=== PATIENT | female | born 1965 | race Two or more races ===

== ENCOUNTER 2017-08-07 15:03 | Emergency (ER) | payer MEDICARE ==
[2017-08-07] MEDS: HYDROcodone/APAP 5/325MG 1 TAB TABLET PO (15:54)
[2017-08-07] MEDS: KETOROLAC 60 MG/2 ML INJ. IM (15:56)
== END 2017-08-07 16:29 | disposition home or self-care (01) ==
LOC: ER 15:03
DX: M06.9 Rheumatoid arthritis, unspecified (principal); I10 Essential (primary) hypertension; M32.9 Systemic lupus erythematosus, unspecified; Z90.49 Acquired absence of other specified parts of digestive tract; Z98.890 Other specified postprocedural states; Z88.5 Allergy status to narcotic agent; Z88.8 Allergy status to other drugs, medicaments and biological substances
CPT/HCPCS: 96372; 99283-25; J1885

== ENCOUNTER → 2018-08-22 | Outpatient (CLI) | payer MEDICARE ==
[2017-08-07 15:15] VITALS: BP 130/73
[~2018-08-22] MED LIST: ASPI-621 PO; CYCL10TA2 PO; HYDR-3164 PO; IBUP-1060 PO
--- NOTE | 2018-08-22 14:57 | KCIC ---
Bilateral digital screening mammograms with 3-D tomosynthesis: Reason for examination: Routine screening. Comparison is made to previous studies dated 11/06/2012 and 08/02/2009. Bilateral mammograms in CC and oblique projections were obtained with 2-D imaging and 3-D tomosynthesis imaging on a Siemens Inspiration unit and reviewed on the workstation. Interpretation was made with the benefit of CAD. The skin and nipples show no abnormalities. No abnormal axillary lymph nodes are seen. The breast parenchyma is extremely dense. (Breast density: Category D.) There are 2 circumscribed nodules present in the lower inner quadrant of the right breast with a 7 mm nodule at the 4:00 B position and a 3.2 cm nodule at the 5:00 B position. These likely represent cysts. There also appears to be a circumscribed lesion measuring 1.8 cm in size located at approximately the 2:00 B position 5.3 cm from the nipple. There are no other new dominant masses, suspicious calcifications or architectural distortion. Impression: 3.2 cm circumscribed lesion at the 5:00 B position of the right breast. 7 mm circumscribed nodule 4:00 B position of the right breast and at 1.8 cm nodule in the left breast at the 2:00 B position. Recommend further evaluation with bilateral breast ultrasound. Your patient's mammogram demonstrates that she has dense breast tissue (breast density category C or D), which could hide abnormalities, and if she has other risk factors for breast cancer that have been identified, she might benefit from supplemental screening tests that may be suggested by you as her ordering physician. Dense breast tissue, in and of itself, is a relatively common condition. Therefore, this information is not provided to cause undue concern, but rather to raise your awareness and to promote discussion with your patient regarding the presence of other risk factors, in addition to dense breast tissue. Your patient's mammography results will be sent to her. BI-RAD Category 0: Incomplete. Needs additional imaging evaluation. "Our facility is accredited by the [employer] Mammography Program." This patient's information has been entered into a reminder system for the patient to be notified with the results of her examination and a target date for the next mammogram. Electronically signed by: Sharon Valencia MD (08/22/2018 2:54 PM) [facility]
== END | disposition home or self-care (01) ==
LOC: KCIC MAMMO 10:39
PROVIDERS: ATTEND Nurse Practitioner Family
DX: Z12.31 Encounter for screening mammogram for malignant neoplasm of breast (principal); N63.14 Unspecified lump in the right breast, lower inner quadrant; N63.21 Unspecified lump in the left breast, upper outer quadrant
CPT/HCPCS: 77063; 77067

== ENCOUNTER → 2018-09-10 | Outpatient (CLI) | payer MEDICARE ==
[2017-08-07 15:15] VITALS: BP 130/73
--- NOTE | 2018-09-10 09:47 | KCIC ---
Bilateral breast ultrasound: Reason for examination: Nodular densities on screening mammogram. Comparison is made to mammographic exam dated 08/22/2018. Ultrasound examination was performed bilaterally with attention to the areas of mammographic concern and the axilla. In the right breast at the 3:30 position 6 cm from the nipple, there is a bilobed fibrocystic lesion which appears well-circumscribed. The largest of the 2 lesions appears to measure 6.2 mm in greatest dimension and together the nodules measure 9.4 mm in greatest dimension. In the 5:00 position 3 cm from the nipple, there is also a circumscribed complex cystic lesion measuring 3.2 x 2.8 cm in greatest dimensions and contains some inspissated debris. No suspicious lesions are seen. No abnormal appearing lymph nodes are seen in the right axilla. In the left breast at the 2:00 position 5 cm from the nipple, there are 3 clustered fibrocystic lesions which are subcentimeter in size with largest measuring 3.6 mm in greatest dimension. At the 3:00 position 7 cm from the nipple, there is an additional 5 mm fibrocystic lesion. No other cystic or solid lesions are seen. No abnormal appearing lymph nodes are seen in the left axilla. IMPRESSION: 3.2 cm complicated cyst at the 5:00 position of the right breast. Additional small benign-appearing fibrocystic lesions at the 3:30 position of the right breast and at the 2:00 and 3:00 positions of the left breast. No suspicious lesions are seen. Recommend 6 month follow-up with ultrasound. BI-RADS Category 3: Probably Benign. "Our facility is accredited by the [employer] Mammography Program." This patient's information has been entered into a reminder system for the patient to be notified with the results of her examination and a target date for the next mammogram. Electronically signed by: Sharon Valencia MD (09/10/2018 9:44 AM) [facility]
== END | disposition home or self-care (01) ==
LOC: KCIC US 07:33
PROVIDERS: ATTEND Nurse Practitioner Family
DX: N60.01 Solitary cyst of right breast (principal); N64.89 Other specified disorders of breast
CPT/HCPCS: 76641

== ENCOUNTER 2018-10-06 06:58 | Emergency (ER) | payer MEDICARE ==
[~2018-10-06] VITALS: Ht 154.9 cm; Wt 97.5 kg
[~2018-10-06 06:58] MED LIST changes: -CYCL10TA2 PO
[2018-10-06] MEDS ORDERED: IV NORMAL SALINE 1000ML BAG 1,000 ML IV SCH (07:24)
[2018-10-06 07:26] LABS: BILIRUBIN,URINE NEGATIVE (NEG); CLARITY,URINE CLEAR; COLOR,URINE YELLOW; NITRITE,URINE NEGATIVE (NEG); PH,URINE 5.5; PROTEIN,URINE NEGATIVE (NEG-TRACE)
[2018-10-06 07:37] LABS: BACTERIA,URINE FEW /HPF (0-FEW); SQUAMOUS EPITHELIAL CELL,UR MOD /LPF; WBC,URINE 0 /HPF (0-4)
[2018-10-06 07:41] LABS: BASO % 0 % (0-3); EOS # 0.1 x10^3/uL (0.0-0.7); EOS % 2 % (0-3); HEMATOCRIT 39.2 % (36.0-47.0); HEMOGLOBIN 13.5 g/dL (12.0-15.5); LYMPH # 1.2 x10^3/uL (1.0-4.8); LYMPH % 22 % (24-48); MEAN CORPUSCULAR HEMOGLOBIN 30 pg (25-35); MEAN CORPUSCULAR HGB CONC 34 g/dL (31-37); MEAN CORPUSCULAR VOLUME 89 fL (79-100); MONO # 0.5 x10^3/uL (0.0-1.1); MONO % 8 % (0-9); NEUT # 3.9 x10^3uL (1.8-7.7); NEUT % 69 % (31-73); PLATELET COUNT 203 x10^3/uL (140-400); RED BLOOD COUNT 4.42 x10^6/uL (3.50-5.40); RED CELL DISTRIBUTION WIDTH 15.8 % (11.5-14.5); WHITE BLOOD COUNT 5.7 x10^3/uL (4.0-11.0)
[2018-10-06 07:47] LABS: CREATININE 0.9 mg/dL (0.6-1.0); GFR 65.2; POTASSIUM 3.9 mmol/L (3.5-5.1)
[2018-10-06 07:52] LABS: ALBUMIN 3.8 g/dL (3.4-5.0); ALBUMIN/GLOBULIN RATIO 0.8 (1.0-1.7); TOTAL BILIRUBIN 0.4 mg/dL (0.2-1.0); TOTAL PROTEIN 8.4 g/dL (6.4-8.2)
--- NOTE | 2018-10-06 07:56 | RAD ---
Examination: CT of the abdomen pelvis without contrast HISTORY: History of left flank pain COMPARISON: None available TECHNIQUE: Axial CT images of the abdomen is available for the contrast. Coronal and sagittal reformats performed Exposure: One or more of the following individualized dose reduction techniques were utilized for this examination: 1. Automated exposure control 2. Adjustment of the mA and/or kV according to patient size 3. Use of iterative reconstruction technique FINDINGS: Mild bibasilar lung airspace opacities likely atelectasis or infiltrates. No evidence of free air identified in the abdomen. The evaluation of the solid organs is limited due to lack of IV contrast. The evaluation of bowel is limited due to lack of oral contrast. There is diffuse decreased attenuation noted in the liver likely hepatic steatosis. The visualized spleen, adrenals grossly appears unremarkable. Cholecystectomy clips identified. The stomach is mildly distended. The visualized pancreas grossly appears unremarkable. The small bowel is nondilated. The appendix is normal. Feces and gas noted in the colon. There is mild thickened appearance of the wall of the distal descending colon and the sigmoid colon with minimal surrounding fat stranding. Numerous sigmoid colon diverticulosis identified. The urinary bladder is mildly distended. No evidence of intrarenal collecting system calculi or hydronephrosis. The caliber of the aorta grossly appears unremarkable. No evidence of lytic bony destructive lesion. IMPRESSION: 1. Mild thickening of the wall of the distal descending colon and sigmoid colon with minimal surrounding fat stranding likely minimal colitis. 2. Multiple sigmoid colon diverticulosis. 3. No evidence of intrarenal collecting system calculi or hydronephrosis. 4. Hepatic steatosis. Electronically signed by: Hal Nathan MD (10/06/2018 7:53 AM) [facility]
[2018-10-06] MEDS ORDERED: fentaNYL PF VIAL 100 MCG/2 ML VIAL IV ONE (08:00)
[2018-10-06] MEDS ORDERED: ONDANSETRON PF 4 MG/2 ML VIAL. IV ONE (08:00)
[2018-10-06] MEDS ORDERED: IV NORMAL SALINE 1000ML BAG 1,000 ML IV ONE (08:30)
[2018-10-06] MEDS ORDERED: KETOROLAC 30 MG/ML VIAL. IV ONE (08:30)
[2018-10-06] MEDS ORDERED: CYCLOBENZAPRINE 10 MG TABLET. PO ONE (08:45)
[2018-10-06 09:45] VITALS: BP 116/71
[2018-10-06] MEDS ORDERED: HYDR-3164 PO (09:54)
[2018-10-06] MEDS ORDERED: CYCL10TA2 PO (09:54)
--- NOTE | 2018-10-06 09:54 | PHYS DOC ---
Past Medical History Past Medical History: Hypertension, Other Additional Past Medical Histor: RA, lupus Past Surgical History: Cholecystectomy, Other Additional Past Surgical Histo: hernia Alcohol Use: None Drug Use: None Adult General Chief Complaint Chief Complaint: FLANK PAIN HPI HPI Patient is a 53 year old female who presents with complaining of flank and back pain. Patient complaining of constant left flank and back pain for the last 3 days after she was sitting on a bench during a graduation. She states the pain is a constant sharp pain and radiated to left side of abdomen and denies nausea and vomiting, fever and chills, focal neuro deficit, urinary symptoms, history of back pain. Patient states the pain getting worse with movement and activity and did not get better with [id number] pain medication. Review of Systems Review of Systems Constitutional: Denies fever or chills [] Eyes: Denies change in visual acuity, redness, or eye pain [] HENT: Denies nasal congestion or sore throat [] Respiratory: Denies cough or shortness of breath [] Cardiovascular: No additional information not addressed in HPI [] GI: Denies abdominal pain, nausea, vomiting, bloody stools or diarrhea [] : Denies dysuria or hematuria [] Musculoskeletal: Reports back pain, denies joint pain [] Integument: Denies rash or skin lesions [] Neurologic: Denies headache, focal weakness or sensory changes [] Endocrine: Denies polyuria or polydipsia [] All other systems were reviewed and found to be within normal limits, except as documented in this note. Current Medications Current Medications Current Medications Medications (Trade) Dose Ordered Sig/[facility] Start Time Stop Time Status Last Admin Dose Admin Cyclobenzaprine HCl (Flexeril) 10 mg 1X ONCE 10/06/18 08:45 10/06/18 08:46 DC 10/06/18 09:04 10 MG Fentanyl Citrate (Fentanyl 2ml Vial) 50 mcg 1X ONCE 10/06/18 08:00 10/06/18 08:01 DC 10/06/18 07:38 50 MCG Ketorolac Tromethamine (Toradol 30mg Vial) 30 mg 1X ONCE 10/06/18 08:30 10/06/18 08:31 DC 10/06/18 08:29 30 MG Ondansetron HCl (Zofran) 4 mg 1X ONCE 10/06/18 08:00 10/06/18 08:01 DC 10/06/18 07:38 4 MG Sodium Chloride 1,000 ml @ 1,000 mls/hr 1X ONCE 10/06/18 08:30 10/06/18 09:29 DC 10/06/18 08:29 1,000 MLS/HR Allergies Allergies Allergies Coded Allergies Type Severity Reaction Last Updated Verified prednisone Allergy Intermediate rash 08/26/15 Yes diphenhydramine Allergy Unknown "toungue swells and itching" 03/23/16 Yes Physical Exam Physical Exam Constitutional: Well developed, well nourished, mild distress, non-toxic appearance. [] HENT: Normocephalic, atraumatic, oropharynx moist. Eyes: PERRLA, EOMI, conjunctiva normal, no discharge. [] Neck: Normal range of motion, no tenderness, supple, no stridor. [] Cardiovascular:Heart rate regular rhythm, no murmur [] Lungs & Thorax: Bilateral breath sounds clear to auscultation [] Abdomen: Bowel sounds normal, soft, left lower quadrant guarding, no tenderness, no masses, no pulsatile masses. [] Skin: Warm, dry, no erythema, no rash. [] Back: No midline tenderness, left paraspinal muscular spasm ,no CVA tenderness. [] Extremities: No tenderness, no cyanosis, no clubbing, ROM intact, no edema, bilateral hand joint deformity of rheumatoid arthritis. [] Neurologic: Alert and oriented X 3, normal motor function, normal sensory function, no focal deficits noted. [] Psychologic: Affect normal, judgement normal, mood normal. [] Current Patient Data Vital Signs Vital Signs Date Time Temp Pulse Resp B/P (MAP) Pulse Ox O2 Delivery O2 Flow Rate FiO2 10/06/18 09:45 78 16 116/71 (86) 97 Room Air 10/06/18 07:02 98.3 98.3 Lab Values Laboratory Tests Test 10/06/18 07:00 10/06/18 07:25 Urine Collection Type Unknown Urine Color Yellow Urine Clarity Clear Urine pH 5.5 Urine Specific Osteen 1.020 Urine Protein Negative mg/dL (NEG-TRACE) Urine Glucose (UA) Negative mg/dL (NEG) Urine Ketones (Stick) Negative mg/dL (NEG) Urine Blood Negative (NEG) Urine Nitrite Negative (NEG) Urine Bilirubin Negative (NEG) Urine Urobilinogen Dipstick 1.0 mg/dL (0.2 mg/dL) Urine Leukocyte Esterase Negative (NEG) Urine RBC 1-2 /HPF (0-2) Urine WBC 0 /HPF (0-4) Urine Squamous Epithelial Cells Mod /LPF Urine Bacteria Few /HPF (0-FEW) Urine Mucus Marked /LPF White Blood Count 5.7 x10^3/uL (4.0-11.0) Red Blood Count 4.42 x10^6/uL (3.50-5.40) Hemoglobin 13.5 g/dL (12.0-15.5) Hematocrit 39.2 % (36.0-47.0) Mean Corpuscular Volume 89 fL (79-100) Mean Corpuscular Hemoglobin 30 pg (25-35) Mean Corpuscular Hemoglobin Concent 34 g/dL (31-37) Red Cell Distribution Width 15.8 % (11.5-14.5) H Platelet Count 203 x10^3/uL (140-400) Neutrophils (%) (Auto) 69 % (31-73) Lymphocytes (%) (Auto) 22 % (24-48) L Monocytes (%) (Auto) 8 % (0-9) Eosinophils (%) (Auto) 2 % (0-3) Basophils (%) (Auto) 0 % (0-3) Neutrophils # (Auto) 3.9 x10^3uL (1.8-7.7) Lymphocytes # (Auto) 1.2 x10^3/uL (1.0-4.8) Monocytes # (Auto) 0.5 x10^3/uL (0.0-1.1) Eosinophils # (Auto) 0.1 x10^3/uL (0.0-0.7) Basophils # (Auto) 0.0 x10^3/uL (0.0-0.2) Sodium Level 139 mmol/L (136-145) Potassium Level 3.9 mmol/L (3.5-5.1) Chloride Level 101 mmol/L (98-107) Carbon Dioxide Level 27 mmol/L (21-32) Anion Gap 11 (6-14) Blood Urea Nitrogen 23 mg/dL (7-20) H Creatinine 0.9 mg/dL (0.6-1.0) Estimated GFR (Cockcroft-Gault) 65.2 BUN/Creatinine Ratio 26 (6-20) H Glucose Level 114 mg/dL (70-99) H Calcium Level 9.0 mg/dL (8.5-10.1) Total Bilirubin 0.4 mg/dL (0.2-1.0) Aspartate Amino Transferase (AST) 30 U/L (15-37) Alanine Aminotransferase (ALT) 51 U/L (14-59) Alkaline Phosphatase 80 U/L (46-116) Total Protein 8.4 g/dL (6.4-8.2) H Albumin 3.8 g/dL (3.4-5.0) Albumin/Globulin Ratio 0.8 (1.0-1.7) L Lipase 130 U/L (73-393) Laboratory Tests 10/06/18 07:25 Laboratory Tests 10/06/18 07:25 EKG EKG [] Radiology/Procedures Radiology/Procedures [][facility] [address] [place] [address] IMAGING REPORT Signed PATIENT: DEJUAN ANDERSON ACCOUNT: [id number] : 1965 LOCATION: ER AGE: 53 SEX: F EXAM STATUS: REG ER ORD. PHYSICIAN: ORTIZ REDDING MD REASON: left flank pain PROCEDURE: CT ABDOMEN PELVIS WO CONTRAST Examination: CT of the abdomen pelvis without contrast HISTORY: History of left flank pain COMPARISON: None available TECHNIQUE: Axial CT images of the abdomen is available for the contrast. Coronal and sagittal reformats performed Exposure: One or more of the following individualized dose reduction techniques were utilized for this examination: 1. Automated exposure control 2. Adjustment of the mA and/or kV according to patient size 3. Use of iterative reconstruction technique FINDINGS: Mild bibasilar lung airspace opacities likely atelectasis or infiltrates. No evidence of free air identified in the abdomen. The evaluation of the solid organs is limited due to lack of IV contrast. The evaluation of bowel is limited due to lack of oral contrast. There is diffuse decreased attenuation noted in the liver likely hepatic steatosis. The visualized spleen, adrenals grossly appears unremarkable. Cholecystectomy clips identified. The stomach is mildly distended. The visualized pancreas grossly appears unremarkable. The small bowel is nondilated. The appendix is normal. Feces and gas noted in the colon. There is mild thickened appearance of the wall of the distal descending colon and the sigmoid colon with minimal surrounding fat stranding. Numerous sigmoid colon diverticulosis identified. The urinary bladder is mildly distended. No evidence of intrarenal collecting system calculi or hydronephrosis. The caliber of the aorta grossly appears unremarkable. No evidence of lytic bony destructive lesion. IMPRESSION: 1. Mild thickening of the wall of the distal descending colon and sigmoid colon with minimal surrounding fat stranding likely minimal colitis. 2. Multiple sigmoid colon diverticulosis. 3. No evidence of intrarenal collecting system calculi or hydronephrosis. 4. Hepatic steatosis. Electronically signed by: Hal Nathan MD (10/06/2018 7:53 AM) [facility] DICTATED and SIGNED BY: HAL NATHAN MD DATE: 10/06/18 0753 Course & Med Decision Making Course & Med Decision Making Pertinent Labs and Imaging studies reviewed. (See chart for details) Evaluation of patient in ER showed 53-year-old female patient with complaining of left flank and left lower quadrant pain for 3 days as a constant pain that getting worse with movement. Patient had unremarkable labs. CT of abdomen and pelvis showed left colitis without other acute finding. Patient has appointment for colonoscopy in 3 days. Patient felt better with treatment in ER. Plan to discharge patient home with diagnose of lumbosacral strain. Dragon Disclaimer Dragon Disclaimer This electronic medical record was generated, in whole or in part, using a voice recognition dictation system. Departure Departure Impression: Primary Impression: Acute lumbosacral myofascial strain Additional Impressions: Diverticulosis Colitis History of rheumatoid arthritis Dehydration Disposition: HOME, SELF-CARE (at 0 952) Condition: IMPROVED Referrals: EDWARD GALLARDO APRN (PCP) Patient Instructions: Colitis, Dehydration, Adult, Diverticulosis, Lumbosacral Strain Additional Instructions: Drink plenty of liquids Follow-up with your primary care physician in 3-5 days Return to ER if not getting better Apply ice on the affected area Scripts Hydrocodone/Apap 5-325 (NORCO 5-325 TABLET) 1 Each Tablet 1 TAB PO PRN Q6HRS PRN for PAIN, #14 TAB 0 Refills Prov: ORTIZ REDDING MD 10/06/18 Cyclobenzaprine Hcl (CYCLOBENZAPRINE HCL) 10 Mg Tablet 1 TAB PO TID for muscle pain, #30 TAB Prov: ORTIZ REDDING MD 10/06/18 Problem Qualifiers Primary Impression: Acute lumbosacral myofascial strain Encounter type: initial encounter Qualified Codes: S39.012A - Strain of muscle, fascia and tendon of lower back, initial encounter ORTIZ REDDING MD October 06, 2018 09:54
== END 2018-10-06 10:05 | disposition home or self-care (01) ==
LOC: ER 06:58
DX: S39.012A Strain of muscle, fascia and tendon of lower back, initial encounter (principal); K52.9 Noninfective gastroenteritis and colitis, unspecified; K57.90 Diverticulosis of intestine, part unspecified, without perforation or abscess without bleeding; E86.0 Dehydration; M06.9 Rheumatoid arthritis, unspecified; I10 Essential (primary) hypertension; Z90.49 Acquired absence of other specified parts of digestive tract; Z98.890 Other specified postprocedural states; Z88.5 Allergy status to narcotic agent; X58.XXXA Exposure to other specified factors, initial encounter; Y93.89 Activity, other specified; Y92.89 Other specified places as the place of occurrence of the external cause; Y99.8 Other external cause status
CPT/HCPCS: 36415; 74176; 80053; 81001; 83690; 85025; 96361; 96374; 96375; 99285; J1885; J2405; J3010; J7030

== ENCOUNTER → 2018-10-25 | Outpatient (CLI) | payer MEDICARE ==
[2018-10-06 09:45] VITALS: BP 116/71
[~2018-10-25] MED LIST changes: +CYCL10TA2 PO; +IOHEXOL 350 MG/ML 100 ML VIAL. IV ONE
--- NOTE | 2018-10-25 12:14 | RAD ---
Examination: CT ANGIOGRAPHY ABD AND PELVIS History: Left-sided abdominal pain. Ischemic colitis. Comparison/Correlation: 10/06/2018 CT abdomen and pelvis without contrast Findings: Axial images of the abdomen and pelvis were obtained following IV contrast according to arteriography protocol. MIP images and 3-D volume rendered images provided. Sagittal and coronal reformatted images provided. At the right lower inner breast, there is a 2.4 cm diameter well-circumscribed structure with Hounsfield units of 35. This may correspond with a finding reported on mammographic exam dated 08/22/2018. Visualized lung bases are unremarkable. Fatty infiltration of liver is noted. Cholecystectomy evident. Spleen is unremarkable. Pancreas is normal. Adrenal glands are normal. Kidneys are unremarkable. Diverticulosis is present without acute inflammation. No enlarged abdominal or pelvic lymph nodes. Celiac, superior mesenteric, and inferior mesenteric arteries are patent with no significant plaque identified. Minimal calcific plaque involves proximal right renal artery. Minimal calcific plaque involves the proximal left main renal artery. No significant renal arterial stenosis. No abdominal aortic aneurysm. Iliac arteries are widely patent. No abdominal aortic aneurysm. Urinary bladder is unremarkable. Bony structures are unremarkable for the patient's age. Impression: The abdominal aorta and its branches are widely patent with no significant plaque. No appreciable stenosis. Diverticulosis is present. No acute inflammatory findings. No findings of ischemic colitis. Fatty infiltration liver. Right lower inner breast well-circumscribed lesion which has density of complex cyst. Ultrasound correlation is recommended for further characterization if not already performed. PQRS Compliance Statement: One or more of the following individualized dose reduction techniques were utilized for this examination: 1. Automated exposure control 2. Adjustment of the mA and/or kV according to patient size 3. Use of iterative reconstruction technique Electronically signed by: Kenneth Roberson MD (10/25/2018 12:11 PM) [id number]
== END | disposition home or self-care (01) ==
LOC: CT 08:02
PROVIDERS: ATTEND Physician Assistant
DX: K55.9 Vascular disorder of intestine, unspecified (principal); K76.0 Fatty (change of) liver, not elsewhere classified; K57.90 Diverticulosis of intestine, part unspecified, without perforation or abscess without bleeding; Z90.49 Acquired absence of other specified parts of digestive tract
CPT/HCPCS: 74174; Q9967

== ENCOUNTER → 2019-02-27 | Outpatient (CLI) | payer MEDICARE ==
[~2019-02-27] MED LIST changes: +DOCU50CA9 PO; -IOHEXOL 350 MG/ML 100 ML VIAL. IV ONE
--- NOTE | 2019-02-27 16:00 | KCIC ---
Bilateral breast ultrasound: Reason for examination: Follow-up nodules. Comparison is made to previous study dated 09/10/2018. Bilateral whole breast ultrasound including evaluation of all 4 quadrants and the retroareolar and axillary regions of both breasts was performed. In the right breast at the 3:30 position 6 cm from the nipple, there continue to be adjacent cysts measuring 5.5 and 7.9 mm in greatest dimension. In the 5:00 position 3 cm from the nipple, there continues to be circumscribed anechoic nodule with some dependent debris consistent with a complicated cystic appearance but now shows a circumscribed hypoechoic lesion with some vascularity. This lesion measures 3.2 cm in greatest dimension. Intracystic tumor cannot be excluded and further evaluation with ultrasound biopsy is recommended. No other cystic or solid lesions are seen. No abnormal appearing lymph nodes are seen in the axilla. In the left breast there are hypoechoic fibrocystic type lesions measuring up to 4.3 mm in size at the 2:00 position 5 cm from the nipple. There is a 6.8 mm cyst at the 3:00 position 7 cm from the nipple. No other cystic or solid nodules are seen. No abnormal appearing lymph nodes are seen in the left axilla. IMPRESSION: 3.2 cm hypoechoic lesion at the 5:00 position 3 cm from the nipple which is changed since previous exam. Intracystic tumor cannot be excluded and further evaluation with aspiration or biopsy is recommended. Continued presence of additional benign-appearing small cystic and fibrocystic lesions. BI-RADS Category 4: Suspicious. These findings have been discussed with the patient and Juancarlos, the expert medical writer for nurse practitioner, Chayito Alcocer, was notified about these findings at 3:55 PM on 02/27/2019. "Our facility is accredited by the [employer] Mammography Program." This patient's information has been entered into a reminder system for the patient to be notified with the results of her examination and a target date for the next mammogram. Electronically signed by: Sharon Valencia MD (02/27/2019 3:57 PM) [facility]
== END | disposition home or self-care (01) ==
LOC: KCIC US 07:59
PROVIDERS: ATTEND Nurse Practitioner Family
DX: N63.14 Unspecified lump in the right breast, lower inner quadrant (principal); N60.02 Solitary cyst of left breast; N60.01 Solitary cyst of right breast; N64.89 Other specified disorders of breast
CPT/HCPCS: 76641

== ENCOUNTER 2019-03-25 08:23 | Day surgery (SDC) | payer MEDICARE ==
[~2019-03-25] VITALS: Ht 154.9 cm; Wt 96.5 kg
[~2019-03-25 08:23] MED LIST changes: +BUPIVACAINE-EPI 0.5%-1:200000 MPF 30 ML VIAL. INJ ONE; -DOCU50CA9 PO; +HYDROmorphone 2 MG/ML VIAL IV PRN; +IV RINGERS,LACTATED 1000ML 1,000 ML IV SCH; +LIDOCAINE 1% PF 2 ML VIAL. ID PRN; +MORPHINE SULFATE 2 MG/ML VIAL. IV PRN; +ONDANSETRON PF 4 MG/2 ML VIAL. IV PRN; +PROCHLORPERAZINE 10 MG/2 ML VIAL. IV PRN; +fentaNYL PF VIAL 100 MCG/2 ML VIAL IV PRN
[2019-03-25] MEDS ORDERED: fentaNYL PF VIAL 100 MCG/2 ML VIAL ONE (09:46)
[2019-03-25] MEDS ORDERED: MIDAZOLAM HCL/PF 2 MG/2 ML VIAL. ONE (09:46)
[2019-03-25] MEDS ORDERED: ceFAZolin 2GM PREMIX 2 GM/50 ML BAG IV ONE (11:00)
--- NOTE | 2019-03-25 11:08 | RAD ---
EXAM: Right breast ultrasound localization. HISTORY: Right breast mass. Localization is requested. COMPARISON: 02/27/2019. FINDINGS: Sonographic evaluation of the right breast was performed. This again demonstrates a complex cystic mass with an intracystic nodule at the 5:00 position 3 cm from the nipple. Internal perfusion is noted within an intracystic nodule. Overall the mass measures 3.6 x 2.9 x 2.2 cm. The overlying skin was marked and the patient transferred to the OR. BI-RADS Category 4: Biopsy is suggested. IMPRESSION: 1. Ultrasound-guided localization of a right breast mass at the 5:00 position 3 cm from the nipple.
[2019-03-25] MEDS ORDERED: LIDOCAINE 2% PF 5 ML VIAL. ONE (11:12)
[2019-03-25] MEDS ORDERED: DEXAMETHASONE SOD PHOS 4 MG/ML VIAL ONE (11:12)
[2019-03-25] MEDS ORDERED: ONDANSETRON PF 4 MG/2 ML VIAL. ONE (11:12)
[2019-03-25] MEDS ORDERED: SEVOFLURANE 31 TO 60 MINUTES. IH ONE (11:12)
[2019-03-25] MEDS ORDERED: PROPOFOL 40 ML IV ONE (11:12)
--- NOTE | 2019-03-25 11:12 | DISCH ---
DISCHARGE INSTRUCTIONS Condition on Discharge Condition on Discharge: Stable Activity After Discharge Activity Instructions for Disc: Activity as tolerated, Avoid exertion Driving Instructions after Dis: Do not drive today Diet after Discharge Diet after Discharge: Regular Wound Incision Care Wound/Incision Care: Ice to area for comfort Other wound/incision instructi: love mario Follow-Up Follow up with: Agapito next week JOE PERKINS MD Mar 25, 2019 11:12
--- NOTE | 2019-03-25 11:16 | PDOC ---
BRIEF OPERATIVE NOTE Date: Mar 25, 2019 Pre-Op Diagnosis right breast mass Post-Op Diagnosis same Procedure Performed exicisional biopsy after US localization Surgeon Agapito Anesthesia Type: General (LMA) Blood Loss 5cc IV Fluid 850cc Specimens Obtained right breast mass, 4:00 Findings cystic mass Complications none Operative Note Wk # [id number] JOE PERKINS MD Mar 25, 2019 11:16
--- NOTE | 2019-03-25 11:26 | OP ---
DATE OF SURGERY: 03/25/2019 PREOPERATIVE DIAGNOSIS: Right breast mass. POSTOPERATIVE DIAGNOSIS: Right breast mass. PROCEDURE: Excisional biopsy of right breast mass after ultrasound localization. SURGEON: Joe Perkins MD ANESTHESIA: General LMA. ESTIMATED BLOOD LOSS: 5 mL. INTRAVENOUS FLUIDS: 850. OPERATIVE REPORT: The patient brought to the operating suite, given a general LMA and the right breast prepped and draped in usual sterile fashion. Using a combination of palpation and the skin localization ibeth placed by ultrasound, a circumareolar incision was infiltrated with local anesthetic from 2-5 o'clock. Incision made and dissection carried down over a cystic mass, which was then sharply excised. Hemostasis with cautery. When this was present and a correct sponge count made, the breast tissue was approximated with 3-0 Vicryl. The skin was closed with a subcuticular 4-0 Monocryl. Steri-Strips and sterile dressing applied. The patient awakened from her anesthetic and taken to the recovery room in satisfactory condition. JOE PERKINS MD DR: MIGUEL/nts JOB#: [id number] / [id number]
[2019-03-25] MEDS: fentaNYL PF VIAL 100 MCG/2 ML VIAL IV PRN ×2 (11:44→11:56)
[2019-03-25] MEDS ORDERED: HYDROcodone/APAP 5/325MG 1 TAB TABLET PO ONE (11:45)
[2019-03-25] MEDS ORDERED: DOCU50CA9 PO (11:48)
[2019-03-25] MEDS ORDERED: HYDR-3164 PO (11:49)
[2019-03-25] MEDS ORDERED: ALBUTEROL SULFATE 2.5 MG/3 ML NEBU. ONE (12:23)
[2019-03-25] MEDS ORDERED: ALBUTEROL SULFATE 2.5 MG/3 ML NEBU. NEB ONE (12:30)
[2019-03-25 12:31] VITALS: BP 158/92
== END 2019-03-25 12:50 | disposition home or self-care (01) ==
LOC: SURG 08:23
PROVIDERS: ATTEND Surgery
DX: N63.10 Unspecified lump in the right breast, unspecified quadrant (principal); I11.9 Hypertensive heart disease without heart failure; E78.00 Pure hypercholesterolemia, unspecified; K57.30 Diverticulosis of large intestine without perforation or abscess without bleeding; K76.0 Fatty (change of) liver, not elsewhere classified; E66.01 Morbid (severe) obesity due to excess calories; Z68.41 Body mass index [BMI] 40.0-44.9, adult; Z87.39 Personal history of other diseases of the musculoskeletal system and connective tissue
CPT/HCPCS: 19125; 76641; 94640; A7015; J0696; J1100; J2001; J2250; J2405; J2704; J3010; J3490; J7613